=== PATIENT | male | born 1940 | race Caucasian/White ===

== ENCOUNTER 2017-11-14 07:28 | Day surgery (SDC) | payer MEDICARE, BC ==
[2017-11-14] MEDS ORDERED: PROPOFOL 500 MG/50 ML EMU IV ONE (07:40)
[2017-11-14] MEDS ORDERED: LIDOCAINE HCL 1% MPF SOL ONE (07:40)
[2017-11-14 09:48] VITALS: BP 109/71; PULSE 61; RESP 16; TEMP 97.7; O2SAT 93
== END 2017-11-14 10:21 | disposition home or self-care (01) | DRG 951 ==
LOC: SURG 07:28
PROVIDERS: ATTEND Surgery
DX: Z12.11 Encounter for screening for malignant neoplasm of colon (principal); D12.2 Benign neoplasm of ascending colon; K62.1 Rectal polyp
CPT/HCPCS: J2001; J2704